=== PATIENT | male | born 1960 | race Two or more races ===

== ENCOUNTER 2021-07-14 23:47 | Inpatient (IN) | payer OTHER ==
[~2021-07-14] VITALS: Ht 180.3 cm; Wt 98.4 kg
--- NOTE | 2021-07-14 23:52 | NUR ---
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 LWK: 1999. PATIENT HOOKED TO MONITOR AND POX. PLACED IN BED 01 ON AWAITING MD LUA.
--- NOTE | 2021-07-14 23:58 | NUR ---
LINE ESTABLISHED RAC18G AND ONE SPECIAL EDUCATION CLASSROOM AIDE LAC18G
--- NOTE | 2021-07-14 23:59 | NUR ---
MD JOHNSON @ BEDSIDE FOR EVALUATION
--- NOTE | 2021-07-14 23:59 | NUR ---
BLOOD COLLECTED AND SENT TO LAB
--- NOTE | 2021-07-15 | NUR ---
CODE STROKE CALLED
--- NOTE | 2021-07-15 00:02 | NUR ---
Alissa richter in [facility] - 07/15/21 at 0002 by DANE CODE STROKE CALLED
--- NOTE | 2021-07-15 00:05 | NUR ---
TELEMED REQUEST SENT.
--- NOTE | 2021-07-15 00:06 | NUR ---
PATIENT GOING TO CT WITH RN AT BEDSIDE
[2021-07-15 00:12] LABS: BASOPHILS # (AUTO) 0.1 K/uL (0.0-0.2); BASOPHILS % (AUTO) 0.5 % (0.0-2.0); EOSINOPHILS % (AUTO) 4.5 % (0.0-6.0); HEMATOCRIT 43 % (39-51); HEMOGLOBIN 14.3 g/dL (13.5-17.5); LYMPHOCYTES # (AUTO) 2.9 K/uL (0.8-4.8); LYMPHOCYTES % (AUTO) 25.4 % (20.0-44.0); MEAN CORPUSCULAR HGB CONC 33 g/dl (31.0-36.0); MEAN CORPUSCULAR VOLUME 92 fL (80-96); MONOCYTES # (AUTO) 1.3 K/uL (0.1-1.30); MONOCYTES % (AUTO) 11.1 % (2.0-12.0); NEUTROPHILS # (AUTO) 6.7 K/uL (1.8-8.9); NEUTROPHILS % (AUTO) 58.5 % (43.0-81.0); PLATELET COUNT (AUTO) 238 K/uL (150-450); RED BLOOD CELL COUNT(AUTO) 4.67 MIL/uL (4.5-6.0); WHITE BLOOD COUNT (AUTO) 11.5 K/uL (4.3-11.0)
[2021-07-15 00:21] LABS: CALCIUM, SERUM 9.1 mg/dL (8.5-10.1); CARBON DIOXIDE 29 mmol/L (21-32); CHLORIDE 103 mmol/L (98-107); CREATININE 1.8 mg/dL (0.6-1.3); GLUCOSE 201 mg/dL (74-106); POTASSIUM 4.1 mmol/L (3.5-5.1); SODIUM SERUM 139 mmol/L (136-145); UREA NITROGEN, BLOOD 22 mg/dL (7-18)
--- NOTE | 2021-07-15 00:22 | NUR ---
PT RETURNED FROM CT SCAN
--- NOTE | 2021-07-15 00:25 | NUR ---
PATIENT PLACED IN A GOWN AND HOOKED BACK ONTO A MONITOR AND POX.
--- NOTE | 2021-07-15 00:26 | NUR ---
COVID SWAB DONE AND SENT TO LAB
--- NOTE | 2021-07-15 00:26 | NUR ---
EMT @ BEDSIDE FOR EKG
--- NOTE | 2021-07-15 00:26 | NUR ---
EMT AT BEDSIDE FOR EKG
--- NOTE | 2021-07-15 00:28 | NUR ---
TELE NEUROLOGIST DR. MAGAÑA EVALUATION IN PROCESS
--- NOTE | 2021-07-15 00:32 | NUR ---
DR GRAMAJO, NEUROLOGIST, ON THE PHONE WITH DR JOHNSON
--- NOTE | 2021-07-15 00:33 | NUR ---
EMT AT BEDSIDE FOR EKG
--- NOTE | 2021-07-15 00:43 | NUR ---
RADIOLOGIST ON THE PHONE WITH DR JOHNSON
[2021-07-15] MEDS ORDERED: IV NS 0.9% 1,000 ML IV ONE (01:00)
[2021-07-15] MEDS ORDERED: LABETALOL HCL IV 100MG VIAL ONE (02:28)
--- NOTE | 2021-07-15 02:28 | NUR ---
DR JOHNSON ON THE PHONE WITH DR CHAUDHARI AT [facility] HARM REDUCTION WORKER , [place]: [phone]
--- NOTE | 2021-07-15 02:29 | NUR ---
PER DR JOHNSON, HE WAS TOLD BY DR CHAUDHARI TO ADMIT THE PATIENT HERE
[2021-07-15] MEDS ORDERED: LABETALOL 20 MG/4 ML VIAL IV ONE (02:30)
--- NOTE | 2021-07-15 02:59 | NUR ---
CALLED GINO THOMASON AND CLARIFIED THE ECHO ORDER. PER GINO, OK TO BE DONE IN AM
[2021-07-15] MEDS ORDERED: ENOXAPARIN SODIUM 40 MG/0.4 ML DISP.SYRIN SQ SCH (03:00)
[2021-07-15] MEDS ORDERED: ACETAMINOPHEN 650 MG/SUPP.RECT RC PRN (03:00)
[2021-07-15] MEDS ORDERED: IV NS 0.9% 1,000 ML IV PRN (03:00)
--- NOTE | 2021-07-15 03:05 | NUR ---
REPORT GIVEN TO СЕРГЕЙ QURESHI FOR YISEL
[2021-07-15] MEDS ORDERED: METF-442 PO (03:08)
[2021-07-15] MEDS ORDERED: DONE10TA11 PO (03:08)
[2021-07-15] MEDS ORDERED: METO25TA6 PO (03:08)
[2021-07-15] MEDS ORDERED: LISI-768 PO (03:08)
[2021-07-15] MEDS ORDERED: GLIM4TAB37 PO (03:08)
[2021-07-15] MEDS ORDERED: AMLO-212 PO (03:08)
[2021-07-15] MEDS ORDERED: ATOR40TA PO (03:08)
[2021-07-15 05:28] LABS: BASOPHILS # (AUTO) 0.1 K/uL (0.0-0.2); BASOPHILS % (AUTO) 0.6 % (0.0-2.0); EOSINOPHILS % (AUTO) 4.6 % (0.0-6.0); HEMATOCRIT 42 % (39-51); HEMOGLOBIN 13.7 g/dL (13.5-17.5); LYMPHOCYTES # (AUTO) 2.6 K/uL (0.8-4.8); LYMPHOCYTES % (AUTO) 23.2 % (20.0-44.0); MEAN CORPUSCULAR HGB CONC 33 g/dl (31.0-36.0); MEAN CORPUSCULAR VOLUME 92 fL (80-96); MONOCYTES # (AUTO) 1.3 K/uL (0.1-1.30); MONOCYTES % (AUTO) 11.6 % (2.0-12.0); NEUTROPHILS # (AUTO) 6.8 K/uL (1.8-8.9); PLATELET COUNT (AUTO) 217 K/uL (150-450); RED BLOOD CELL COUNT(AUTO) 4.52 MIL/uL (4.5-6.0); WHITE BLOOD COUNT (AUTO) 11.3 K/uL (4.3-11.0)
--- NOTE | 2021-07-15 05:32 | NUR ---
TRANSFERED TO [facility] UNDER ACLS
--- NOTE | 2021-07-15 05:45 | NUR ---
RN NOTES TELE PT RECEIVED FROM ER @ [id number]. WITH TWO PERSONEL ASSES WITH VIA OBED.PT AOX4.RM AIR MARGARITA. WELL NO SIGN SOB/DISTRESS NOTED.LAC#18G,RAC#18G INTACT/PATENT.NO COMPLAINE OF PAIN/DISCOMFORT AT THIS TIME.BED IN LOW/LUCKED POSITION.SAFETY MEASURED INPLACE.CALL LIGHT WITHIN REACH.CONTS TO MONITOR.
[2021-07-15 05:46] LABS: ALBUMIN 3.5 g/dL (3.4-5.0); BILIRUBIN,TOTAL 0.3 mg/dL (0.2-1.0); CALCIUM, SERUM 8.8 mg/dL (8.5-10.1); CREATININE 1.5 mg/dL (0.6-1.3); MAGNESIUM 1.7 mg/dL (1.8-2.4); PHOSPHORUS 3.5 mg/dL (2.5-4.9); TOTAL PROTEIN, SERUM 6.7 g/dL (6.4-8.2)
[2021-07-15 05:56] LABS: THYROID STIMULATING HORMONE 1.568 uIU/mL (0.358-3.74)
[2021-07-15] MEDS ORDERED: BLOOD SUGAR DIAGNOSTIC 1 EACH STRIP IN SCH (06:00)
--- NOTE | 2021-07-15 06:47 | NUR ---
TEXT DR. VALLECILLO FOR MRI APPROVAL
--- NOTE | 2021-07-15 07:23 | NUR ---
RN NOTES TELE PT IN BED AOX4.RM AIR MARGARITA. WELL NO SIGN SOB/DISTRESS NOTED.LAC#18G,RAC#18G INTACT/PATENT.NO COMPLAINE OF PAIN/DISCOMFORT NOTED.ALL NEEDS ATTENDED..BED IN LOW/LUCKED POSITION.SAFETY MEASURED INPLACE.CALL LIGHT WITHIN REACH.CONTS TO MONITOR.
[2021-07-15] MEDS ORDERED: DICL100G34 TD (07:38)
[2021-07-15] MEDS ORDERED: ACET-868 PO (07:38)
--- NOTE | 2021-07-15 07:53 | NUR ---
THIRD HELPER OPENING NOTE Patient in bed, awake. A/O x 3, able to make needs known. On room air, breathing evenly and unlabored. No SOB or s/s of distress noted. IV access on LAC #18 and RAC #18 intact and patent. Patient denies any pain or discomfort at this time. Safety precautions in place: be din low, locked position; siderails up x 2; call light within reach. Will continue to monitor. Addendum: 07/15/21 at 0806 by VIPIN KERN RN ADD: On tele monitoring showing SR, HR on the 70's.
--- NOTE | 2021-07-15 08:00 | NUR ---
MRI APPROVED, SCREEN PRINTER HELPER NOTIFIED
[2021-07-15] MEDS: BLOOD SUGAR DIAGNOSTIC 1 EACH STRIP IN SCH ×4 (08:09→21:28)
[2021-07-15] MEDS ORDERED: PANTOPRAZOLE 40 MG VIAL IV SCH (09:00)
[2021-07-15] MEDS ORDERED: ATORVASTATIN 10 MG TABLET PO SCH (09:00)
[2021-07-15] MEDS ORDERED: ASPIRIN EC 325 MG TABLET.DR PO SCH (09:00)
[2021-07-15] MEDS ORDERED: ACETAMINOPHEN 325 MG TABLET PO PRN (11:30)
[2021-07-15] MEDS ORDERED: LORAZEPAM INJ 2 MG/ML VIAL IV ONE (12:00)
[2021-07-15] MEDS ORDERED: MAGNESIUM OXIDE 400 MG TABLET PO ONE (12:30)
[2021-07-15] MEDS ORDERED: DEXTROSE 50%-WATER 50 ML DISP.SYRIN IV PRN (16:00)
[2021-07-15] MEDS ORDERED: INSULIN REGULAR, HUMAN 100 UNIT/ML 3 ML VIAL SQ PRN (16:00)
[2021-07-15] MEDS: METFORMIN 500 MG TABLET PO SCH (17:27)
--- NOTE | 2021-07-15 19:19 | NUR ---
SPOTLIGHT OPERATOR CLOSING NOTE Patient in bed, asleep. A/O x 3, able to make needs known. Stable on room air, breathing evenly and unlabored. No SOB or s/s of distress noted. IV access on LAC #18 intact and patent, and RAC #18 infusing NS at 50 ml/hr. All needs attended to. Due meds given. Safety precautions maintained: bed in low, locked position; siderails up x 2; call light within reach. Will endorse to night shift supervisor nurse for YISEL.
--- NOTE | 2021-07-15 19:36 | NUR ---
EPIC MANAGER OPENING NOTES PATIENT RECEIVED ASLEEP, RESTING IN CHAIR COMFORTABLY; EASILY AROUSABLE; BREATHING EVEN AND UNLABORED; NO SOB NOTED; TOLERATING ROOM AIR WELL; PATIENT ABLE TO MAKE NEEDS KNOWN; PATIENT DENIES PAIN AT THIS TIME; NO DISTRESS NOTED; TELE MONITOR READS NORMAL SINUS RHYTHM, PATIENT AMBULATORY WITH STEADY GAIT; LAC #18 NOTED RAC #18 NOTED WELL; NO S/S OF REDNESS OR INFILTRATION NOTED; SAFETY PRECAUTIONS IMPLEMENTED; CALL LIGHT WITHIN REACH; WILL CONT TO MONITOR AND CONT PLAN OF CARE
--- NOTE | 2021-07-15 19:49 | NUR ---
SWIMMING PROFESSOR NOTES PATIENT AMBULATED BACK TO BED WITH STEADY GAIT AND MINIMAL ASSISTANCE;
[2021-07-15] MEDS ORDERED: LISINOPRIL (5MG) 5 MG TABLET PO SCH (22:00)
[2021-07-15] MEDS ORDERED: SIMVASTATIN 40 MG TABLET PO SCH (22:00)
--- NOTE | 2021-07-16 04:10 | NUR ---
ANTIQUE FURNITURE REPAIRER NOTES PATIENT VERBALIZED HE HE FEELS PINS AND NEEDLES ON HIS FEET; PATIENT AMBULATING THROUGHOUT UNIT WITH STEADY GAIT; PATIENT REPORTED WALKING AROUND GIVES HIM RELIEF; PATIENT DENIES PAIN AT THIS TIME; CHARGE NURSE AWARE;
[2021-07-16] MEDS: BLOOD SUGAR DIAGNOSTIC 1 EACH STRIP IN SCH ×2 (06:35→12:40)
--- NOTE | 2021-07-16 06:43 | NUR ---
CERTIFIED NUTRITIONIST CLOSING NOTES PATIENT RESTING IN CHAIR COMFORTABLY; BREATHING EVEN AND UNLABORED; NO SOB NOTED; TOLERATING ROOM AIR WELL; PATIENT ABLE TO MAKE NEEDS KNOWN; PATIENT DENIES PAIN AT THIS TIME; NO DISTRESS NOTED; TELE MONITOR READS NORMAL SINUS RHYTHM, PATIENT AMBULATORY WITH STEADY GAIT; LAC #18 NOTED RAC #18 NOTED WELL; NO S/S OF REDNESS OR INFILTRATION NOTED; ALL NEEDS RENDERED; SAFETY PRECAUTIONS IMPLEMENTED; CALL LIGHT WITHIN REACH; WILL ENDORSE YISEL TO ONCOMING SHIFT
--- NOTE | 2021-07-16 07:30 | NUR ---
PULLING UNIT OPERATOR OPENING NOTES RECEIVED PATIENT SITTING IN CHAIR COMFORTABLY. PATIENT HAS NO SIGNS AND SYMPTOMS OF SOB, BREATHING EVEN AND UNLABORED. PATIENT CAN TOLERATE ROOM AIR WELL. PATIENT ABLE TO MAKE NEEDS KNOWN; PATIENT DENIES PAIN AT THIS TIME; NO DISTRESS NOTED; TELE MONITOR READS NORMAL SINUS RHYTHM, PATIENT AMBULATORY WITH STEADY GAIT; LAC #18 NOTED RAC #18 NOTED WELL; NO S/S OF REDNESS OR INFILTRATION NOTED; ALL NEEDS RENDERED; SAFETY PRECAUTIONS IMPLEMENTED; WILL CONTINUE TO MONITOR FOR YISEL.
[2021-07-16 08:00] VITALS: BP 143/97
[2021-07-16] MEDS ORDERED: PANTOPRAZOLE 40 MG TABLET.DR PO SCH (08:30)
[2021-07-16] MEDS ORDERED: METOPROLOL TARTRATE 25 MG TABLET PO SCH (09:00)
[2021-07-16] MEDS ORDERED: DONEPEZIL 5 MG TABLET PO SCH (09:00)
[2021-07-16] MEDS ORDERED: AMLODIPINE BESYLATE 5 MG TABLET PO SCH (09:00)
[2021-07-16] MEDS ORDERED: ATORVASTATIN 40 MG TABLET PO SCH (09:00)
[2021-07-16] MEDS: METFORMIN 500 MG TABLET PO SCH (09:34)
[2021-07-16] MEDS ORDERED: ATORVASTATIN 10 MG TABLET PO SCH (11:00)
[2021-07-16] MEDS ORDERED: ASPIRIN EC 325 MG TABLET.DR PO SCH (11:00)
[2021-07-16 11:40] VITALS: BP 141/85
[2021-07-16] MEDS ORDERED: CLOP75TA15 PO (11:54)
[2021-07-16] MEDS ORDERED: ASPI-1100 PO (11:54)
--- NOTE | 2021-07-16 15:11 | NUR ---
GRIEVANCE AND APPEALS SPECIALIST NOTES DR. THORPE INFORMED OF PRELIMINARY ECHOCARDIOGRAM REPORT, PER MD, PT CLEARED FOR DISCHARGE.
--- NOTE | 2021-07-16 16:00 | NUR ---
RIBBON SWEATBAND OPERATORSOFTWARE LEAD NOTES PATIENT IS ALERT, AWAKE AND ORIENTED X4. VITAL SIGNS ARE STABLE AND WITHIN NORMAL LIMITS. PATIENT HAS NO SIGNS AND SYMPTOMS OF SOB, BREATHING EVEN AND UNLABORED. PATIENT CAN TOLERATE ROOM AIR WELL. PATIENT ABLE TO MAKE NEEDS KNOWN; PATIENT DENIES PAIN AT THIS TIME; NO DISTRESS NOTED. IV IS DISCONNECTED AND PATIENT TOLERATED IT WELL, NO S/S OF INFLAMMATION AND INFILTRATION. D/C INSTRUCTIONS GIVE TO PATIENT, AND HE VERBALIZED UNDERSTANDING. PATIENT IS STABLE AND HE IS READY FOR DISCHARGED.
== END 2021-07-16 16:30 | disposition home or self-care (01) | DRG 47 ==
LOC: ER 23:49 → TELE 07-15 03:16
PROVIDERS: ADMIT Internal Medicine; ATTEND Internal Medicine
DX: G45.9 Transient cerebral ischemic attack, unspecified (principal); N17.0 Acute kidney failure with tubular necrosis; R65.10 Systemic inflammatory response syndrome (SIRS) of non-infectious origin without acute organ dysfunction; I10 Essential (primary) hypertension; Z20.822 Contact with and (suspected) exposure to COVID-19; F03.90 Unspecified dementia, unspecified severity, without behavioral disturbance, psychotic disturbance, mood disturbance, and anxiety; R41.3 Other amnesia; I69.311 Memory deficit following cerebral infarction; I69.320 Aphasia following cerebral infarction; Z79.02 Long term (current) use of antithrombotics/antiplatelets; Z79.84 Long term (current) use of oral hypoglycemic drugs; Z79.899 Other long term (current) drug therapy; E78.5 Hyperlipidemia, unspecified; E11.40 Type 2 diabetes mellitus with diabetic neuropathy, unspecified; E83.42 Hypomagnesemia; Z79.82 Long term (current) use of aspirin
CPT/HCPCS: 36415; 70450-TC; 70496-TC; 70498-TC; 70551-TC; 71045-TC; 80048-TC; 80053-TC; 82962-TC; 83735-TC; 84100-TC; 84443-TC; 84484-TC; 85025-TC; 85730-TC; 87081-TC; 92507-TC; 92521; 92526; 92611-TC; 93307-TC; 97116-TC; 97530-TC; 97535-TC; C9113; C9803; G0378; J1650; J1815; J2060; J3490; J7030

== ENCOUNTER 2022-02-13 00:39 | Emergency (ER) | payer OTHER ==
[~2022-02-13] VITALS: Ht 182.9 cm; Wt 90.7 kg
[~2022-02-13 00:39] MED LIST: ACET-868 PO; AMLO-212 PO; ASPI-1100 PO; ATOR40TA PO; CLOP75TA15 PO; DICL100G34 TD; DONE10TA11 PO; GLIM4TAB37 PO; LISI-768 PO; METF-442 PO; METO25TA6 PO
--- NOTE | 2022-02-13 00:40 | NUR ---
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 NO FACIAL ASYMETRY NOTE. A/OX 3. TOLERATING R/A WELL WITH NO RESP DISTRESS. RR EVEN AND NON LABORED. CONNECTED PT TO POX AND MONITOR. SAFETY MEASURES IN PLACE.
--- NOTE | 2022-02-13 01:10 | NUR ---
LAC #18G S/L BLOOD AND COVID ANTIGEN SWAB COLLECTED AND SENT TO LAB
--- NOTE | 2022-02-13 01:14 | NUR ---
PROVIDED PT WITH URINAL; AWAITING URINE SAMPLE
[2022-02-13 01:24] LABS: BASOPHILS # (AUTO) 0.1 K/uL (0.0-0.2); BASOPHILS % (AUTO) 0.6 % (0.0-2.0); EOSINOPHILS % (AUTO) 4.3 % (0.0-6.0); HEMATOCRIT 44 % (39-51); HEMOGLOBIN 14.3 g/dL (13.5-17.5); LYMPHOCYTES # (AUTO) 2.3 K/uL (0.8-4.8); LYMPHOCYTES % (AUTO) 19.9 % (20.0-44.0); MEAN CORPUSCULAR HGB CONC 32 g/dl (31.0-36.0); MEAN CORPUSCULAR VOLUME 93 fL (80-96); MONOCYTES # (AUTO) 1.4 K/uL (0.1-1.30); MONOCYTES % (AUTO) 12.1 % (2.0-12.0); NEUTROPHILS # (AUTO) 7.3 K/uL (1.8-8.9); NEUTROPHILS % (AUTO) 63.1 % (43.0-81.0); PLATELET COUNT (AUTO) 246 K/uL (150-450); RED BLOOD CELL COUNT(AUTO) 4.78 MIL/uL (4.5-6.0); WHITE BLOOD COUNT (AUTO) 11.6 K/uL (4.3-11.0)
[2022-02-13 01:33] LABS: CALCIUM, SERUM 9.1 mg/dL (8.5-10.1); CARBON DIOXIDE 31 mmol/L (21-32); CHLORIDE 102 mmol/L (98-107); CREATININE 1.5 mg/dL (0.6-1.3); GLUCOSE 116 mg/dL (74-106); POTASSIUM 4.9 mmol/L (3.5-5.1); SODIUM SERUM 138 mmol/L (136-145); UREA NITROGEN, BLOOD 20 mg/dL (7-18)
--- NOTE | 2022-02-13 01:33 | NUR ---
PT TAKEN TO CT VIA OBED
[2022-02-13 01:39] LABS: ALANINE AMINOTRANSFERASE 41 U/L (12-78); ALBUMIN 3.9 g/dL (3.4-5.0); ALKALINE PHOSPHATASE 115 U/L (46-116); ASPARTATE AMINOTRANSFERASE 18 U/L (15-37); BILIRUBIN,DIRECT 0.1 mg/dL (0.0-0.2); BILIRUBIN,TOTAL 0.3 mg/dL (0.2-1.0); TOTAL PROTEIN, SERUM 7.5 g/dL (6.4-8.2)
--- NOTE | 2022-02-13 02:06 | NUR ---
URINE COLLECTED AND SENT TO LAB
--- NOTE | 2022-02-13 03:24 | NUR ---
[facility] 20-30 MINUTES
--- NOTE | 2022-02-13 03:27 | NUR ---
REPORT GIVEN TO SUKUMAR FROM [facility] FOR YISEL
[2022-02-13] MEDS ORDERED: hydrALAZINE HCL IV 20 MG VIAL ONE ×2 (03:29→05:57)
[2022-02-13] MEDS ORDERED: hydrALAZINE HCL IV 20 MG VIAL IV ONE ×3 (03:30→06:00)
--- NOTE | 2022-02-13 03:43 | NUR ---
REPORT GIVEN TO [facility] FOR PT TO DC TO [facility]. [facility] AT PT'S BEDSIDE.
[2022-02-13] MEDS ORDERED: ONDANSETRON HCL/PF 4 MG/2 ML VIAL ONE (03:47)
[2022-02-13] MEDS ORDERED: ONDANSETRON HCL/PF 4 MG/2 ML VIAL IV ONE (04:00)
--- NOTE | 2022-02-13 04:50 | NUR ---
NATIONAL VAN OWNER OPERATOR AT PT'S BEDSIDE. [facility] WITH RETURN WHEN RESULTS ARE BACK TO D/C PT TO [facility]
--- NOTE | 2022-02-13 05:43 | NUR ---
[facility] CALLED 45MINS-1HOUR
[2022-02-13 07:17] VITALS: BP 141/87
--- NOTE | 2022-02-13 07:17 | NUR ---
REPORT GIVEN TO [facility] FOR PT TO DC TO [facility]. [facility] AT PT'S BEDSIDE. IV removed. Catheter intact and site benign. Pressure and 4x4 applied to site. No bleeding noted.
== END 2022-02-13 07:23 ==
LOC: ER 00:49
DX: I12.9 Hypertensive chronic kidney disease with stage 1 through stage 4 chronic kidney disease, or unspecified chronic kidney disease (principal); R47.01 Aphasia; Z86.73 Personal history of transient ischemic attack (TIA), and cerebral infarction without residual deficits; N18.9 Chronic kidney disease, unspecified; E11.22 Type 2 diabetes mellitus with diabetic chronic kidney disease; Z79.84 Long term (current) use of oral hypoglycemic drugs; E78.5 Hyperlipidemia, unspecified; F03.90 Unspecified dementia, unspecified severity, without behavioral disturbance, psychotic disturbance, mood disturbance, and anxiety; Z79.899 Other long term (current) drug therapy; Z20.822 Contact with and (suspected) exposure to COVID-19
CPT/HCPCS: 99285; 96374; 70450; 71045; 96375; 87426; 93005; 96376; 85025; 80048; 80076; 36415; 84484 ×2; 85730; 82962; 80307; J0360 ×2; J2405; C9803